=== PATIENT | female | born 1985 | race African-American/Black ===

== ENCOUNTER 2018-04-16 22:42 | Emergency (ER) | payer SELFPAY | END 2018-04-16 23:45 | disposition left against medical advice (07) | LOC: FTE 23:45 | DX: Z53.21 Procedure and treatment not carried out due to patient leaving prior to being seen by health care provider (principal) | CPT/HCPCS: 93005 ==

== ENCOUNTER 2018-06-20 00:45 | Emergency (ER) | payer SELFPAY | END 2018-06-20 02:18 | disposition left against medical advice (07) | LOC: FTE 00:45 | DX: Z53.21 Procedure and treatment not carried out due to patient leaving prior to being seen by health care provider (principal) ==

== ENCOUNTER 2018-11-02 19:56 | Emergency (ER) | payer OTHER ==
[2018-11-02] MEDS: IBUPROFEN 600 MG TAB PO (22:17)
== END 2018-11-02 23:13 | disposition home or self-care (01) ==
LOC: FTE 19:56
DX: S99.921A Unspecified injury of right foot, initial encounter (principal); W20.8XXA Other cause of strike by thrown, projected or falling object, initial encounter; Y92.9 Unspecified place or not applicable; Z87.891 Personal history of nicotine dependence
CPT/HCPCS: 73630; 99283-25

== ENCOUNTER 2019-06-10 21:31 | Emergency (ER) | payer SELFPAY, OTHER | END 2019-06-11 01:29 | disposition left against medical advice (07) | LOC: FTE 21:31 | DX: Z53.21 Procedure and treatment not carried out due to patient leaving prior to being seen by health care provider (principal) ==